=== PATIENT | female | born 1970 | race American Indian/Alaskan Native ===

== ENCOUNTER 2017-06-15 14:33 | Outpatient (CLI) | payer OTHER | END 2017-06-15 14:34 | disposition home or self-care (01) | LOC: LABHHL 14:33 | PROVIDERS: ATTEND Surgery | DX: N60.01 Solitary cyst of right breast (principal) | CPT/HCPCS: 88112 ==

== ENCOUNTER 2019-06-13 14:28 | Outpatient (CLI) | payer BC, OTHER | END 2019-06-13 14:29 | disposition home or self-care (01) | LOC: LABHHL 14:28 | PROVIDERS: ATTEND Surgery | DX: N60.01 Solitary cyst of right breast (principal) | CPT/HCPCS: 88112 ==

== ENCOUNTER 2021-06-18 10:11 | Outpatient (CLI) | payer OTHER ==
--- NOTE | 2021-06-18 15:21 | Mammography Report ---
DIGITAL SCREENING MAMMOGRAM WITH TOMOSYNTHESIS WITH CAD, 06/18/2021 CLINICAL INFORMATION / INDICATION: Routine Screening Mammography. TECHNIQUE: Digital bilateral 2D and 3D mammography with tomosynthesis was obtained in the craniocaud al and mediolateral oblique projections. Computer-Aided Detection (CAD) analysis was used for interp retation of this study. COMPARISON: 04/15/2015 through 06/13/2020. FINDINGS: Breast Density: The breasts are heterogeneously dense, which may obscure small masses. No dominant mass, suspicious calcifications, or architectural distortion in either breast. IMPRESSION: No mammographic evidence of malignancy. Follow up recommendation: Routine yearly BI-RADS Category 1: Negative. A "normal" or negative report should not discourage follow up or biopsy of a clinically significant f inding. A written summary of these findings will be mailed to the patient. The patient will be entered into a mammography reporting system which will generate a reminder letter for the patient's next appointmen t at the appropriate interval. The [employer] recommends yearly mammograms starting at age 40 and continuing as l eve as a woman is in good health. Breast MRI is recommended for women with an approximate 20-25% or greater lifetime risk of breast cancer, including women with a strong family history of breast or ova kari cancer or who have been treated for Hodgkin's disease. Signer Name: Humberto Malik MD Signed: 06/18/2021 3:17 PM Workstation Name: [id number]
--- NOTE | 2021-06-18 15:21 | Mammography Report ---
Please see combined report from the same date. Signer Name: Humberto Malik MD Signed: 06/18/2021 3:17 PM Workstation Name: [email or web address]
== END 2021-06-18 10:12 | disposition home or self-care (01) ==
LOC: SPVWC 10:11
PROVIDERS: ATTEND Surgery
DX: Z12.31 Encounter for screening mammogram for malignant neoplasm of breast (principal)
CPT/HCPCS: 77063; 77067